=== PATIENT | male | born 1955 | race Two or more races ===

== ENCOUNTER → 2025-03-20 | Outpatient (CLI) | payer BC, MEDICARE, SELFPAY ==
--- NOTE | 2025-03-20 12:20 | XR_ITS ---
Examination: Bone densitometry Date and time of exam: March 20, 2025, 1250 hours INDICATIONS: Diabetic, 69-year-old male with diagnosis age-related osteoporosis Technique: Lumbar spine and hip total bone mineralization values of an calculated. Peak reference and age match control results have been displayed. Findings: Lumbar spine total bone mineralization is 0.937 gm/cm2. This is 1.4 standard deviations below peak reference. This is 0.5 standard deviations below age-matched controls. Hip total bone mineralization is 1.034 gm/cm2 This is 0.2 standard deviations below peak reference. This is 0.5 standard deviations above age-matched controls Impression: There is osteopenia based on lumbar spine measurements. There is osteopenia based on hip measurements
== END | disposition home or self-care (01) ==
PROVIDERS: Referring Provider Internal Medicine; Visit Provider Internal Medicine
DX: M85.89 Other specified disorders of bone density and structure, multiple sites (principal)
CPT/HCPCS: 77080